=== PATIENT | male | born 1995 | race Caucasian/White ===

== ENCOUNTER 2016-11-09 04:20 | Emergency (ER) | payer SELFPAY ==
[~2016-11-09 04:20] MED LIST: SERO100T PO
[2016-11-09 04:21] VITALS: O2SAT 100
[2016-11-09] MEDS ORDERED: DIPHTH/TETANUS/ACEL PERTUSSIS (BOOSTER) 0.5 ML VIAL/PFS IM ONE (04:26)
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
[2016-11-09 04:50] LABS: BASOPHIL % 0.5 % (0.0-2.0); EOSINOPHIL # 0.1 TH/MM3 (0-0.4); EOSINOPHIL % 1.3 % (0.0-4.0); HEMATOCRIT 40.2 % (39.0-51.0); HEMO FLAGS DIFF FINAL; LYMPH % 53.6 % (9.0-44.0); LYMPHOCYTE # 4.7 TH/MM3 (1.0-4.8); MEAN CELL VOLUME 89.2 FL (80.0-100.0); MEAN CORPUSCULAR HGB CONC 33.7 % (32.0-36.0); NEUT % 34.6 % (16.0-70.0); PLATELET COUNT 170 TH/MM3 (150-450); RED BLOOD COUNT 4.51 MIL/MM3 (4.50-5.90); RED CELL DISTRIBUTION WIDTH 14.7 % (11.6-17.2); WHITE BLOOD COUNT 8.8 TH/MM3 (4.0-11.0)
[2016-11-09 04:51] LABS: I-STAT POTASSIUM 3.7 MMOL/L (3.5-4.9)
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
[2016-11-09 04:57] LABS: APTT (PATIENT) 25.7 SEC (24.3-30.1)
[2016-11-09] MEDS ORDERED: LIDOCAINE HCL 1% 50 ML VIAL INFIL ONE (05:00)
[2016-11-09 05:01] VITALS: BP 141/81; PULSE 95; RESP 20; O2SAT 98
[2016-11-09 06:45] VITALS: BP 132/77; PULSE 75; RESP 16; O2SAT 98
[2016-11-09] MEDS ORDERED: BUPIVACAINE/EPINEPHRINE 0.25% PF 30 ML VIAL NERV BLOCK ONE (07:00)
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
--- NOTE | 2016-11-17 21:24 | PD ---
Physical Exam Date Seen by Provider: Nov 09, 2016 Time Seen by Provider: 05:35 Data Data Orders Orders I-Stat Profile (11/09/16 04:30) I-Stat Creatinine (11/09/16 04:30) Complete Blood Count With Diff (11/09/16 04:30) Prothrombin Time / Inr (Pt) (11/09/16 04:30) Act Partial Throm Time (Ptt) (11/09/16 04:30) Type And Screen (11/09/16 04:30) Chest, Single Ap (11/09/16 04:30) Iv Access Insert/Monitor (11/09/16 04:30) Ecg Monitoring (11/09/16 04:30) Oximetry (11/09/16 04:30) Oxygen Administration (11/09/16 04:30) Lidocaine 1% Inj (50 Ml) (Xylocaine 1% I (11/09/16 05:00) Trauma Office Use Only (11/09/16 06:52) Bupivacaine-Epi Pf 0.25% Inj (Marcaine-E (11/09/16 07:00) Labs Laboratory Tests Test 11/09/16 04:35 White Blood Count 8.8 TH/MM3 Red Blood Count 4.51 MIL/MM3 Hemoglobin 13.5 GM/DL Bedside Hemoglobin 13.3 G/DL Hematocrit 40.2 % Bedside Hematocrit 39.0 % Mean Corpuscular Volume 89.2 FL Mean Corpuscular Hemoglobin 30.0 PG Mean Corpuscular Hemoglobin Concent 33.7 % Red Cell Distribution Width 14.7 % Platelet Count 170 TH/MM3 Mean Platelet Volume 8.1 FL Neutrophils (%) (Auto) 34.6 % Lymphocytes (%) (Auto) 53.6 % Monocytes (%) (Auto) 10.0 % Eosinophils (%) (Auto) 1.3 % Basophils (%) (Auto) 0.5 % Neutrophils # (Auto) 3.0 TH/MM3 Lymphocytes # (Auto) 4.7 TH/MM3 Monocytes # (Auto) 0.9 TH/MM3 Eosinophils # (Auto) 0.1 TH/MM3 Basophils # (Auto) 0.0 TH/MM3 CBC Comment DIFF FINAL Differential Comment Prothrombin Time 11.0 SEC Prothromb Time International Ratio 1.0 RATIO Activated Partial Thromboplast Time 25.7 SEC Bedside Sodium 142 MMOL/L Bedside Potassium 3.7 MMOL/L Bedside Chloride 106 MMOL/L Bedside Blood Urea Nitrogen 5 MG/DL Bedside Creatinine 0.7 MG/DL Bedside Glucose 100 MG/DL [facility] Medical Record Reviewed: Yes Supervised Visit with FRANKY: Yes Differential Diagnosis . Narrative Course Patient's laceration of the chest and left third finger was repaired with sutures Procedures Procedure Narrative LACERATION LOCATION: Chest LENGTH: 2 cm NUMBER OF STITCHES/KAREN: 4 REPAIR: The area of the laceration was prepped with Betadine and sterilely draped. The laceration was infiltrated with 1% lidocaine. The wound was copiously irrigated and explored without evidence of foreign body, tendon injury or neurovascular injury. The wound was closed using 4-0 proline. This was a simple single layer repair. A sterile dressing was applied. The patient was advised to keep the dressing clean and dry. Patient tolerated the procedure well. LACERATION LOCATION: Left third finger LENGTH: 2 cm NUMBER OF STITCHES/KAREN: 4 REPAIR: The area of the laceration was prepped with Betadine and sterilely draped. The laceration was infiltrated with 1% lidocaine. The wound was copiously irrigated and explored without evidence of foreign body, tendon injury or neurovascular injury. The wound was closed using 5-0 proline. This was a simple single layer repair. A sterile dressing was applied. The patient was advised to keep the dressing clean and dry. Patient tolerated the procedure well. Diagnosis Primary Impression: Laceration of chest wall Additional Impressions: Laceration of right ear Laceration of finger of left hand Referrals: Danielle Lockhart MD Patient Instructions: General Instructions, Laceration (ED) Departure Forms: Tests/Procedures Additional Instruction: Wound care daily. Follow-up with plastic surgeon. Take medications as directed. Disposition: 01 DISCHARGE HOME Condition: Stable Albert Fish Nov 17, 2016 21:24
== END 2016-11-09 11:05 | disposition home or self-care (01) ==
LOC: EDBD → MERGE 04:20 → NEPE 04:20
DX: S21.119A Laceration without foreign body of unspecified front wall of thorax without penetration into thoracic cavity, initial encounter (principal); S01.311A Laceration without foreign body of right ear, initial encounter; S61.213A Laceration without foreign body of left middle finger without damage to nail, initial encounter; X99.1XXA Assault by knife, initial encounter; Z23 Encounter for immunization
CPT/HCPCS: 12002; 13132; 13152; 13153; 71010; 82435; 82565; 82947; 84132; 84295; 84520; 85025; 85610; 85730; 86850; 86900; 86901; 90471; 90715; 96374; 99291; G0390